=== PATIENT | male | born 1990 | race Caucasian/White ===

== ENCOUNTER 2023-12-13 12:05 | Emergency (ER) | payer BC, SELFPAY ==
[2023-12-13 12:06] VITALS: BP 160/100
--- NOTE | 2023-12-13 12:21 | ED.GENMED ---
History of Present Illness
General
Chief Complaint: Male Genito-Urinary Symptoms
Source: patient
Time Seen by Provider: 12/13/23 12:13
Travel History
Have you had any contact with someone who has COVID-19?: No
Do you have any symptoms of coronavirus? Fever > 100 degrees, chills, cough, shortness of breath, sore throat, loss of taste or smell, muscle aches, or headache?: No
History of Present Illness
History of Present Illness:
This patient is a 33-year-old male who says when he awoke this morning he had discomfort in the left inguinal fold area, described as feeling a little 'sore' and less so in the left back area. [place] and
when he was doing that this morning and bent over to pick something up he noted a lot of discomfort in the left testicle which continues although is improved. He rates the pain as 3 out of 10. He denies associated discharge, rash, dysuria,
urgency, frequency, fever, chills, chest pain, shortness of breath, abdominal pain, or other complaints. Patient was seen in urgent care referred to the emergency department.
Past History
Past History
ED Past Medical History: HTN and Hypercholesterolemia
ED Past Surgical History: Urological
Social History
Tobacco: Non-smoker
Alcohol: Occasional
Drug: None
Personal:
Living: with family
Employment: Employed
Phy Exam
Physical Exam
Physical Exam:
GENERAL: Alert , in no apparent distress
EYE: pupils equal and reactive
NECK: Supple, no significant adenopathy.
ENT: o/p clr, mmm.
CARDIAC: Regular rate and rhythm .
LUNGS: Clear breath sounds bilaterally, no acute respiratory distress, no wheezes/rales/rhonchi
ABDOMEN: Soft, without focal tenderness, no r/g, no cvat
NEUROLOGICAL: Alert and oriented, no focal neuro deficits
SKIN: Warm and dry, skin intact.
MUSCULOSKELETAL: No edema, well perfused.
PSYCH: Normal and appropriate interaction.
: tech present...no swelling/redness/rash, mild ttp L testicle cathy inferiorly, no abnl 'lie', cremasteric intact
Course
Orders/Labs/Results
Orders:
Orders
12/13/23 12:13
US Scrotum Stat
Comment:
Reason For Exam: l testiclr pain
12/13/23 13:28
Complete Blood Count/No Diff Urgent
Comprehensive Metabolic Panel Urgent
Urinalysis Reflex To Culture Urgent
Date Specimen was Collected: 12/13/23
Time Specimen was Collected: 12:48
12/13/23 14:02
CT Abd/pel Without Iv Or Oral Urgent
Comment:
Reason For Exam: L SIDED PAIN
Abnormal Lab Results
12/13/23
13:28
Glucose 101 H mg/dl
(70-99)
Calcium 10.6 H mg/dl
(8.4-10.2)
ALT 51 H U/L
(0-50)
Total Protein 8.6 H g/dl
(6.3-8.2)
Albumin 5.1 H g/dl
(3.5-5.0)
12/13/23 13:28
12/13/23 13:28
Vital Signs
Initial and Last Documented VS:
Initial Vital Signs
Temp Pulse Resp BP Pulse Ox
99.1 F 89 16 160/100 98
12/13/23 12:06 12/13/23 12:06 12/13/23 12:06 12/13/23 12:06 12/13/23 12:06
Last Documented Vital Signs
Temp Pulse Resp BP Pulse Ox
99.1 F 84 16 146/76 97
12/13/23 12:06 12/13/23 15:12 12/13/23 15:12 12/13/23 15:12 12/13/23 15:12
Update Note
Update Note:
Patient presents to the Emergency Department with left testicular/inguinal, and back pain
Number and Complexity of Problems Addressed at the Encounter
� Chronic conditions affecting care:
� Acute Exacerbation and/or Progression of Chronic Illness:
� Differential Diagnosis includes: But not limited to kidney stone, testicular torsion, epididymitis, etc.
Amount and/or Complexity of Data to be Reviewed and Analyzed
� I performed an independent evaluation of and my interpretation is:
EKG:
CT:
Xrays:
Laboratory Studies: Generally unremarkable, nonspecific mild glucose elevation
Other: Scrotal ultrasound small bilateral hydroceles otherwise unremarkable
� Review of other/old records reveals:
� Clinical information was obtained by an independent historian:
� Prescriptions/Medications Considered but not given:
� Further testing considered but not performed:
Risk of Complications and/or Morbidity or Mortality of Patient Management
� Social determinants of health affecting care:
� Discussion with other providers (PCP, Hospitalists, Consultants, etc):
� Escalation of care including admission/observation vs risk of discharge considered: 3:18 PM patient very comfortable, nontoxic describes 1 out of 10 discomfort which is mild. Workup here generally unremarkable. No torsion
noted and clinical suspicion overall was low. Patient made aware of findings of bilateral small hydroceles. Formal CT report pending however upon my review no abnormalities noted, no stone seen. Unclear specific etiology for patient's pain
however clinical appearance extremely reassuring, workup thus far unremarkable. Patient would like to be discharged as he has a wedding to attend, aware of the importance of follow-up and reasons to return to the ER.
ED Attending Note
-
Portions of this chart may have been created with voice recognition software.� Occasional wrong word or��sound alike� substitutions may have occurred due to the inherent limitations of voice recognition software.
Discharge Plan
Departure
Patient Disposition: Home (Routine Discharge)
Date of Disposition: 12/13/23
Time of Disposition: 15:19
Patient with high blood pressure during this ER visit?: Yes
Condition: Good
Discharge Problem:
Bilateral hydrocele, Pain in left testicle
Instructions: Hydrocele/Varicocele (DC), BLOOD PRESSURE
Referrals:
Kimmie Greenberg MD [Family Provider] - Follow up in 2-3 days
Activity Restrictions/Additional Instructions:
IF YOU DEVELOP FEVER, VOMITING, INCREASING/NEW/PERSISTENT PAIN, PAIN WITH URINATION, BLEEDING, SWELLING, OR OTHER WORRISOME SIGNS, GO TO THE ER IMMEDIATELY!
Interventions
Interventions:
*Risk Screen - Suicide Last Done: 12/13/23 12:56
*Neglect/Abuse Screening Last Done: 12/13/23 12:56
ED- Fall Risk Assessment Last Done: 12/13/23 12:57
*ED COVID-19 Vaccine History Last Done: 12/13/23 12:06
ED-Male Genitourinary Assessment Last Done: 12/13/23 13:38
Discharge Date and Time
Print Language: KOREAN
[2023-12-13 13:41] LABS: Hematocrit 43.8 % (39.0-52.0); Hemoglobin 15.1 g/dL (13.0-18.0); Mean Corp Hgb Conc. 34.5 g/dL (33.0-37.0); Mean Corpuscular Hgb 27.9 pg (27.0-31.0); Mean Platelet Volume 9.5 fL (7.4-10.4); Platelet Count 343 10^3/uL (130-400); Red Blood Cell Count 5.41 10^6/uL (4.70-6.10); Red Cell Dist. Width 12.5 % (11.5-14.5); White Blood Cell Count 8.7 10^3/uL (4.8-10.8)
[2023-12-13 13:52] LABS: ALT (SGPT) 51 U/L (0-50); AST (SGOT) 35 U/L (17-59); Albumin 5.1 g/dl (3.5-5.0); Alkaline Phosphatase 58 U/L (38-126); Blood Urea Nitrogen 17 mg/dl (9-20); Calcium 10.6 mg/dl (8.4-10.2); Carbon Dioxide 25 mmol/L (22-30); Chloride 101 mmol/L (98-107); Glucose 101 mg/dl (70-99); Potassium 4.3 mmol/L (3.5-5.1); Sodium 138 mmol/L (135-145); Total Protein 8.6 g/dl (6.3-8.2); eGFR > 60.00
[2023-12-13 13:53] LABS: Urine Albumin Negative (Neg - Trace); Urine Bilirubin Negative (Negative); Urine Character Clear (Clear); Urine Color Yellow; Urine Glucose Negative (Negative); Urine Ketone Negative (Negative); Urine Leukocyte Negative (Negative); Urine Nitrite Negative (Negative); Urine Occult Blood Negative (Negative); Urine Specific Gravity 1.015 (<1.030); Urine Urobilinogen Negative (Neg - 1+)
[2023-12-13 15:12] VITALS: BP 146/76
[2023-12-13] MEDS: TORADOL 15 MG IV (15:25)
== END 2023-12-13 15:30 | disposition home or self-care (01) ==
LOC: EMR 12:05
PROVIDERS: EMERGENCY PHYSICIAN Emergency Medicine; FAMILY PHYSICIAN Family Medicine
DX: N43.3 Hydrocele, unspecified (principal); N50.812 Left testicular pain; R10.32 Left lower quadrant pain; I10 Essential (primary) hypertension; E78.00 Pure hypercholesterolemia, unspecified
CPT/HCPCS: 99284; 96374; 74176; 76870; 80053; 81003; 85027; 93976